=== PATIENT | female | born 1995 | race Caucasian/White ===

== ENCOUNTER 2017-01-22 05:55 | Emergency (ER) | payer SELFPAY ==
[~2017-01-22] VITALS: Ht 180.3 cm; Wt 98.4 kg
[2017-01-22 05:58] VITALS: BP 147/84
== END 2017-01-22 09:03 | disposition home or self-care (01) ==
LOC: ED 08:38
DX: T76.21XA Adult sexual abuse, suspected, initial encounter (principal); F17.200 Nicotine dependence, unspecified, uncomplicated; Y09 Assault by unspecified means
CPT/HCPCS: 99281